=== PATIENT | female | born 1960 | race Caucasian/White ===

== ENCOUNTER 2019-03-22 08:58 | Day surgery (SDC) | payer BC ==
[~2019-03-22] VITALS: Ht 165.1 cm; Wt 56.7 kg
[2019-03-22] MEDS ORDERED: Fleet's Enema 133ml RECTAL SCH (09:30)
[2019-03-22] MEDS ORDERED: LIALDA1.2 GM ORAL (09:49)
[2019-03-22] MEDS ORDERED: TURMERIC 450-51 EAC1 PO (09:49)
[2019-03-22] MEDS ORDERED: VITAMIN D1000 UNI2 PO (09:49)
[2019-03-22 09:59] VITALS: BP 109/54
--- NOTE | 2019-03-22 10:10 | Short Stay Surgery H&P ---
History of Present Illness History of Present Illness Chief Complaint Preop visit - no change from attached H&P HPI Jessica Bower is a 58 year old female who was admitted on for Ulcerative Colitis Patient History Allergies: Coded Allergies: CEPHALEXIN (Verified Allergy, Unknown, 03/22/19) CIPROFLOXACIN (Verified Allergy, Unknown, 03/22/19) got very sick SULFAMETHOXAZOLE (Verified Allergy, Unknown, 03/22/19) TRIMETHOPRIM (Verified Allergy, Unknown, 03/22/19) Medication History Scheduled Cholecalciferol (Vitamin D3) (Vitamin D), 1,000 UNIT PO DAILY, (Reported) Mesalamine (Lialda), 2.4 GM ORAL DAILY, (Reported) Turmeric/Turmeric Root Extract (Turmeric 450-50 mg Capsule), 1 EACH PO DAILY, ( Reported) Physical Exam Vital Signs Last Vital Signs Date Time Temp Pulse Resp B/P (MAP) Pulse Ox O2 Delivery O2 Flow Rate FiO2 03/22/19 10:01 Room Air 03/22/19 09:59 98.2 64 18 109/54 100 Plan Attestation Are the patient's medical conditions optimized for surgery? Elinor Cerrato MD Mar 22, 2019 10:10
--- NOTE | 2019-03-22 10:11 | Pre-Procedure Note/Attestation ---
Pre-Procedure Note/Attestation Complete Prior to Procedure Planned Procedure: not applicable Procedure Narrative: flex sig Indications for Procedure Pre-Operative Diagnosis: UC Attestation I attest that I discussed the nature of the procedure; its benefits; risks and complications; and alternatives (and the risks and benefits of such alternatives ), prior to the procedure, with the patient (or the patient's legal union representative). I attest that, if there was a reasonable possibility of needing a blood transfusion, the patient (or the patient's legal union representative) was given the [facility] standardized written summary, pursuant to the [place] Blood Safety Act ([place] Health and Safety Code # 1645, as amended). I attest that I re-evaluated the patient just prior to the surgery and that there has been no change in the patient's H&P, except as documented below: Elinor Cerrato MD Mar 22, 2019 10:11
[2019-03-22 10:35] VITALS: BP 112/66
--- NOTE | 2019-03-22 10:38 | Brief Operative Note ---
Immediate Post Operative Note Operative Note Chief Complaint: UC Pre-op Diagnosis: UC Procedure: colon/bx Post-op Diagnosis: UC 20 cm colon left Surgeon: cynthia Anesthesiologist: None Anesthesia: other Specimen: yes Complications: none Condition: stable Fluids: none Estimated Blood Loss: none Implant(s) used?: No Elinor Cerrato MD Mar 22, 2019 10:38
--- NOTE | 2019-03-22 10:38 | Endoscopy Procedure Note ---
Endoscopy Procedure Note General Indication for Procedure: distal UC Procedures Performed: colonoscopy Operative Findings/Diagnosis: s/p subtotal, 23 cm left, only inflamed from 20- 23 Specimen: yes Pt Tolerated Procedure Well: Yes Estimated Blood Loss: none Anesthesia Anesthesiologist: None Anesthesia: other Inserted Devices Implant(s) used?: No GI Core Measures 50 yrs or older w/o bx or poly: Not Applicable 10yrs. F/U recommended: Not Applicable Elinor Cerrato MD Mar 22, 2019 10:38
--- NOTE | 2019-03-22 19:15 | Operative Note - Dictated ---
DATE OF OPERATION: 03/22/2019 GASTROENTEROLOGY PROCEDURE REPORT PROCEDURE: Flexible sigmoidoscopy with biopsy. SURGEON: Elinor Cerrato M.D. ANESTHESIA: None. PRE-ENDOSCOPIC DIAGNOSIS: Distal ulcerative colitis. POST-ENDOSCOPIC DIAGNOSES: 1. Status post subtotal colectomy with approximately 22 cm of the colon left in situ. 2. Marked improvement of the colitis seen compared to prior colonoscopy a year ago. The current examination shows approximately 3 cm of inflammation in the proximal end of the remaining colon. The distal portion of the colon, however, appeared to be free of inflammation. 3. Status post random biopsy with normal distal small bowel and also from colonic segment at 3 different areas. One of the biopsies was obtained from 20 to 22 cm area where inflammation was seen. examination shows marked improvement in the inflammatory process seen compared to previous colonoscopy. This is in agreement with the calprotectin level, which was also dramatically lower than previously. The patient will be continued on current management and biopsies will be evaluated and discussed with the patient with followup. RECOMMENDATIONS: 1. Continue oral and rectal mesalamine with a dose of 2 g of Lialda orally and 1 g of rectally daily. 2. Outpatient followup. Elinor Cerrato M.D. DR: RAYO JOB#: [id number] CC:
== END 2019-03-22 10:50 | disposition home or self-care (01) ==
LOC: GAS 08:58
DX: K51.90 Ulcerative colitis, unspecified, without complications (principal); Z88.8 Allergy status to other drugs, medicaments and biological substances; Z88.2 Allergy status to sulfonamides